=== PATIENT | female | born 1995 | race Hispanic/Latino ===

== ENCOUNTER 2021-09-06 09:24 | Outpatient (CLI) | payer OTHER | END 2021-09-06 09:25 | disposition home or self-care (01) | LOC: BICULT 09:24 | PROVIDERS: ATTEND Family Medicine | DX: O44.42 Low lying placenta NOS or without hemorrhage, second trimester (principal); O32.1XX0 Maternal care for breech presentation, not applicable or unspecified; Z3A.19 19 weeks gestation of pregnancy | CPT/HCPCS: 76805 ==